=== PATIENT | male | born 2000 ===

== ENCOUNTER 2018-10-12 00:52 | Emergency (ER) | payer SELFPAY ==
[2018-10-12] MEDS ORDERED: Bacitracin Zinc 1 Packet ONE (01:58)
--- NOTE | 2018-10-12 08:43 | RAD ---
LEFT HAND THREE VIEWS: INDICATIONS: Fall with lack of sensation. Injury. FINDINGS: There is no fracture or dislocation identified of the left hand. IMPRESSION: No acute osseous abnormality. POS: C
== END 2018-10-12 02:15 | disposition home or self-care (01) ==
LOC: ERS 00:52
DX: S56.302A Unspecified injury of extensor or abductor muscles, fascia and tendons of left thumb at forearm level, initial encounter (principal); T81.89XA Other complications of procedures, not elsewhere classified, initial encounter; V29.9XXA Motorcycle rider (driver) (passenger) injured in unspecified traffic accident, initial encounter
CPT/HCPCS: 29125